=== PATIENT | male | born 1945 | race Two or more races ===

== ENCOUNTER → 2022-01-21 | Emergency (ER) | payer OTHER ==
[~2022-01-21] VITALS: Ht 152.4 cm; Wt 92.1 kg
[~2022-01-21] MED LIST: GLIPIZIDE XL5 MG PO; TAMS0.4C PO
== END | disposition left against medical advice (07) ==
LOC: ER 23:05
DX: T25.222A Burn of second degree of left foot, initial encounter (principal); E11.9 Type 2 diabetes mellitus without complications; X08.8XXA Exposure to other specified smoke, fire and flames, initial encounter; Y93.9 Activity, unspecified; Y92.9 Unspecified place or not applicable; Y99.9 Unspecified external cause status

== ENCOUNTER 2025-03-23 03:20 | Inpatient (IN) | payer OTHER ==
[~2025-03-23] VITALS: Ht 175.3 cm; Wt 95.3 kg
[2025-03-23] VITALS (9 sets, daily range): BP systolic 109–179; BP diastolic 49–73; O2SAT 95–98
--- NOTE | 2025-03-23 03:42 | NUR ---
SE RECIBE PTE ALERTA Y ORIENTADO X3 EN AMBULANCIA QUIEN REFIERE TENER MAREOS Y VOMITOS X3 LUEGO DE COMER COMIDA ORIENTAL. SE MIDEN SV Y PTE PRESENTA PRESION ARTERIAL MANUAL DE 200/90, SE REALIZA EKG Y SE PRESENTA A DR. BARBOSA QUIEN INDICA UBICAR PTE EN SECCION K Y CON MONITOR CARDIACO. SE EJECUTA ORDEN. PTE CON DXT EN 400 MG/DL. NO SE FLORENTIN NINGUN MEDICAMENTO POR DECISION PROPIA.
[2025-03-23] MEDS ORDERED: PROMETHAZINE HCL 25 MG/ML AMPUL IM STA (03:51)
[2025-03-23] MEDS ORDERED: FAMOTIDINE/PF 20 MG/2 ML VIAL IV PUSH STA (03:51)
[2025-03-23] MEDS ORDERED: 0.9 % SODIUM CHLORIDE 500 ML IV ONE (04:00)
[2025-03-23] MEDS ORDERED: PROMETHAZINE HCL 25 MG/ML AMPUL ONE (04:03)
--- NOTE | 2025-03-23 04:06 | NUR ---
RN CANCEL ORIENTA PTE SOBRE TX MEDICO Y PTE REFIERE ENTENDER. SE ADMINISTRAN MEDICANTOS Y SE REALIZA FLORENTIN DE MUESTRAS EDEL ORDEN MEDICA Y BAJO MEDIDAS ASEPTICAS.
[2025-03-23 04:12] LABS: HEMATOCRIT 34.2 % (39.0-48.0); HEMOGLOBIN 11.4 g/dL (13-16.00); MEAN CELL VOLUME 89.4 fL (80.0-100.00); MEAN CORPUSCULAR HEMOGLOBIN 29.7 pg (27.00-32.0); MEAN CORPUSCULAR HGB CONC 33.3 g/dl (32.0-36.0); PLATELET COUNT 221 K/uL (150-450); RED BLOOD COUNT 3.82 M/uL (4.00-6.00); RED CELL DISTRIBUTION WIDTH 16.3 % (11.5-14.5)
[2025-03-23 04:50] LABS: ALBUMIN 3.3 gm/dL (3.4-5.0); BILIRUBIN TOTAL 0.5 mg/dL (0.3-1.2); CALCIUM 8.6 mg/dL (8.5-10.1); CREATININE SERUM 1.17 mg/dL (0.70-1.30); GFR 59.98; POTASSIUM 4.06 mEq/L (3.5-5.1); TOTAL PROTEIN 7.3 gm/dL (6.4-8.2)
[2025-03-23] MEDS ORDERED: INSULIN REGULAR, HUMAN 1,000 UNIT/10 ML UNITS IV STA (05:09)
[2025-03-23 05:38] LABS: PH,URINE 7.5 (5.0-8.0); URINE APPEARANCE Clear; URINE BILIRRUBIN Negative (NEGATIVE); URINE BLOOD Negative; URINE COLOR Yellow; URINE KETONE Negative (NEGATIVE); URINE LEUKOCYTE Negative; URINE NITRATE Negative; URINE PROTEIN 30 (NEGATIVE); URINE UROBILINOGEN 0.2 E.U./dl
[2025-03-23 05:42] LABS: URINE BACTERIA 7.3 uL (0.0-1933); URINE RBC 6.4 uL (0.0-20.8); URINE WBC 3.4 uL (0.0-23.2)
[2025-03-23 05:48] LABS: URINE EPITHELIAL CELLS 0.3 uL (0.0-38.8); URINE GLUCOSE >=1000 MG/DL (NEGATIVE)
[2025-03-23] MEDS ORDERED: ASPIRIN 325 MG TABLET PO STA (06:14)
[2025-03-23] MEDS ORDERED: NITROGLYCERIN 250 ML IV SCH (06:15)
[2025-03-23] MEDS ORDERED: NITROGLYCERIN IN 5 % DEXTROSE 50 MG/250 ML BOTTLE IV ONE (06:23)
--- NOTE | 2025-03-23 06:44 | NUR ---
SE UBICA PTE EN CAMA EN POSICION SEMI SENTADA CON BARANDAS ELEVDAS POR FITZGERALD SEGURIDAD. PTE CONECTADA A MONITOR CARDIACO Y OXIMETRIA. SE REALIZA LAB Y SE ADMINISTRA TX EDEL ORDEN MEDICA BAJO MEDIDAS ASEPTICAS. SE ORIENTA A FAMILIAR DE PTE QUIEN REFIERE ENTENDER Y ACEPTAR.
[2025-03-23 07:44] LABS: INR 1.01; PARTIAL THROMBOPLASTIN TIME 25.4 SECONDS (22.0-34.0)
[2025-03-23] MEDS ORDERED: METOPROLOL SUCCINATE 25 MG TAB.SR.24H PO SCH (09:00)
[2025-03-23] MEDS ORDERED: ASPIRIN 325 MG TABLET PO SCH (09:00)
[2025-03-23] MEDS ORDERED: LOSARTAN POTASSIUM 100 MG TABLET PO SCH (09:00)
[2025-03-23] MEDS ORDERED: ENOXAPARIN SODIUM 80 MG/0.8 ML SYRINGE SUBCUTANEO SCH (09:00)
[2025-03-23] MEDS ORDERED: ATORVASTATIN CALCIUM 40 MG TABLET PO SCH (09:00)
[2025-03-23] MEDS ORDERED: INSULIN LISPRO 1,000 UNIT/10 ML UNITS SUBCUTANEO SCH (11:00)
[2025-03-23] MEDS ORDERED: INSULIN GLARGINE,HUM.REC.ANLOG 1,000 UNITS/10 ML UNITS SUBCUTANEO SCH (17:00)
[2025-03-23] MEDS ORDERED: NITROGLYCERIN IN 5 % DEXTROSE 250 ML IV SCH (19:45)
[2025-03-23] MEDS ORDERED: ENOXAPARIN SODIUM 100 MG/ML SYRINGE SUBCUTANEO SCH (21:00)
[2025-03-23] MEDS ORDERED: NIFEDIPINE 30 MG TAB.SA.OSM PO SCH (22:07)
[2025-03-24 01:00] VITALS: BP 156/78; O2SAT 99
[2025-03-24] MEDS ORDERED: ASPIRIN 81 MG TABLET.EC PO SCH (09:00)
[2025-03-24 09:44] VITALS: BP 159/75; O2SAT 96
== END 2025-03-24 09:30 | disposition left against medical advice (07) | DRG 281 ==
LOC: ER 03:20 → SEC-K 08:02 → MEDI 08:02
PROVIDERS: General Practice; ADMIT Internal Medicine; ATTEND Internal Medicine
PROC: BW28ZZZ Computerized Tomography (CT Scan) of Head (ICD-10-PCS; principal; 2025-03-23)
PROC: 4A12X4Z Monitoring of Cardiac Electrical Activity, External Approach (ICD-10-PCS; 2025-03-23)
DX: I21.3 ST elevation (STEMI) myocardial infarction of unspecified site (principal); I16.1 Hypertensive emergency; R42 Dizziness and giddiness; I11.9 Hypertensive heart disease without heart failure; Z53.29 Procedure and treatment not carried out because of patient's decision for other reasons

== ENCOUNTER 2025-08-22 17:10 | Emergency (ER) | payer OTHER ==
[~2025-08-22] VITALS: Ht 175.3 cm; Wt 90.7 kg
[2025-08-22] MEDS ORDERED: MORPHINE SULFATE 2 MG/ML SYRINGE IV ONE (18:45)
[2025-08-22] MEDS ORDERED: DEXTROSE 50 % IN WATER 0.5 G/ML DISP.SYRIN IV PRN (18:45)
[2025-08-22] MEDS ORDERED: INSULIN LISPRO 1,000 UNIT/10 ML UNITS SUBCUTANEO PRN (18:45)
[2025-08-22] MEDS ORDERED: DEXAMETHASONE SODIUM PHOSPHATE 4 MG/ML VIAL IM ONE (18:45)
[2025-08-22] MEDS ORDERED: DEXAMETHASONE SODIUM PHOSPHATE 4 MG/ML VIAL ONE (19:58)
[2025-08-22 20:17] LABS: BASO % 0.7 % (0.1-1.2); EOS # 0.15 (0.04-0.54); EOS % 1.7 % (0.7-7.0); LYMPH # 0.68 (1.18-3.74); LYMPH % 7.5 % (19.3-53.1); MEAN PLATELET VOLUME 9.70 fl (9.4-12.4); MONO # 0.82 (0.24-0.82); MONO % 9.1 % (4.7-12.5); NEUT # 7.28 (1.56-6.13); NEUT % 80.2 % (34.0-71.1); RED CELL DISTRIBUTION WIDTH 15.6 % (11.6-14.4)
[2025-08-22 20:18] LABS: ERYTHROCYTE SEDIMENTATION RATE 56 mm/hr (0-20)
[2025-08-22 20:29] LABS: INR 1.03
[2025-08-22 20:37] LABS: ALT/SGPT 9 U/L (12-78); AST/SGOT 6 U/L (15-37); BILIRUBIN TOTAL 0.64 mg/dL (0.3-1.2); BUN CREA RATIO 21 (7.0-25.0); CREATININE SERUM 1.32 mg/dL (0.70-1.30); GFR 52.06; GLOBULINA 4.0 G/DL (2.4-3.5)
[2025-08-22] MEDS ORDERED: ACETAMINOPHEN 500 MG GEL..CAP PO ONE (20:38)
[2025-08-22 20:43] LABS: GLUCOSE FASTING 209 mg/dL (65-100); OSMOLALITY SERUM 287 MOSM/KG (275-295)
== END 2025-08-23 00:37 | disposition home or self-care (01) ==
LOC: ER 17:10
DX: S05.8X2A Other injuries of left eye and orbit, initial encounter (principal); S69.82XA Other specified injuries of left wrist, hand and finger(s), initial encounter; W19.XXXA Unspecified fall, initial encounter; Y93.89 Activity, other specified; Y92.89 Other specified places as the place of occurrence of the external cause; Y99.8 Other external cause status; R60.0 Localized edema; H02.849 Edema of unspecified eye, unspecified eyelid; E11.9 Type 2 diabetes mellitus without complications; Z88.9 Allergy status to unspecified drugs, medicaments and biological substances
CPT/HCPCS: 36415; 70450; 70480; 71046; 72125; 72170; 73090; 73110; 96365; 96366; 96372; 99284; J1100; J2270; J3490